=== PATIENT | female | born 1995 | race Caucasian/White ===

== ENCOUNTER 2019-10-30 16:41 | Emergency (ER) | payer SELFPAY ==
[2019-10-30] MEDS ORDERED: Sodium Chloride 0.9% 10 ML Syringe FLUSH PRN ×2 (18:55→19:36)
[2019-10-30] MEDS ORDERED: HYDROmorphone 1 MG/ML Syringe IVPUSH ONE (19:04)
--- NOTE | 2019-10-30 19:15 | EDM.PDOC ---
ED HPI GENERAL MEDICAL PROBLEM - General Chief Complaint: Upper Extremity Injury/Pain Stated Complaint: RIGHT ARM/SHOULDER PAIN Time Seen by Provider: 10/30/19 17:11 Source of Information: Reports: Patient History Limitations: Reports: No Limitations - History of Present Illness INITIAL COMMENTS - FREE TEXT/NARRATIVE: The patient presents with right shoulder and arm pain. The patient was just discharged from [facility]. She gave 36 hours ago. She delivered at 40 weeks gestation. She did have a shoulder dystocia. After delivery she had no problems and was feeling fine until about 40 minutes ago in the car she developed this right shoulder and arm pain. She said the pain started in the shoulder and now it is shooting down her arm. She has some tingling and numbness in that arm also. She has no neck pain. She did not injure her arm. She did have some tightness in her chest but she thought that was maybe from breast feeding. She has no swelling or pain in her legs. She has no shortness of breath. She has no fever, chills, cough, congestion or runny nose. She has no history of DVTs or PEs. Onset: Sudden Duration: Minutes: (40) Location: Reports: Upper Extremity, Right (right shoulder and right arm) Quality: Reports: Sharp Severity: Moderate Improves with: Reports: None Worsens with: Reports: None Associated Symptoms: Reports: No Other Symptoms Right Arm Pain Score (Numeric/FACES): 6 - Related Data Allergies Allergy/AdvReac Type Severity Reaction Status Date / Time No Known Allergies Allergy Verified 10/30/19 16:55 Home Meds: Home Meds [id number]/Iron Fumarate/FA/DSS [ 19 Tablet] 1 each PO DAILY 10/30/19 [ History] Past Medical History HEENT History: Reports: None Cardiovascular History: Reports: None Respiratory History: Reports: None Gastrointestinal History: Reports: Other (See Below) Other Gastrointestinal History: Crohn's Disease Genitourinary History: Reports: None 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 Social & Family History - Tobacco Use Smoking Status *Q: Never Smoker - Caffeine Use Caffeine Use: Reports: Coffee - Recreational Drug Use Recreational Drug Use: No Review of Systems - Review of Systems Review Of Systems: See Below Constitutional: Reports: No Symptoms Eyes: Reports: No Symptoms Ears: Reports: No Symptoms Nose: Reports: No Symptoms Mouth/Throat: Reports: No Symptoms Respiratory: Reports: No Symptoms Cardiovascular: Reports: No Symptoms GI/Abdominal: Reports: No Symptoms Musculoskeletal: Reports: Shoulder Pain (right that raiates down her arm) ED EXAM, GENERAL - Physical Exam Exam: See Below Exam Limited By: No Limitations General Appearance: Alert, No Apparent Distress Ears: Normal External Exam Nose: Normal Inspection Head: Atraumatic, Normocephalic Respiratory/Chest: No Respiratory Distress, Lungs Clear, Normal Breath Sounds Cardiovascular: Regular Rate, Rhythm, No Edema, No Murmur GI/Abdominal: Soft, Non-Tender, No Organomegaly, No Mass Extremities: Other (No pain upon palpation to the right shoulder. Good sensation and pulses distally.) Course - Vital Signs Last Recorded V/S: Last Vital Signs Temp 97.5 F 10/30/19 16:50 Pulse 69 10/30/19 19:19 Resp 18 10/30/19 19:19 BP 149/110 H 10/30/19 19:19 Pulse Ox 98 10/30/19 19:19 - Orders/Labs/Meds Orders: Active Orders 24 hr Category Date Time Status Cardiac Monitoring [RC] . DIRECTED Care 10/30/19 17:27 Active Peripheral IV Care [RC] . DIRECTED Care 10/30/19 18:56 Active Sodium Chloride 0.9% [Normal Saline] 100 ml Med 10/30/19 19:45 Active IV ASDIRECTED Sodium Chloride 0.9% [Saline Flush] Med 10/30/19 18:55 Active 10 ml FLUSH ASDIRECTED PRN Sodium Chloride 0.9% [Saline Flush] Med 10/30/19 19:36 Active 10 ml FLUSH ONETIME PRN Peripheral IV Insertion Adult [OM.PC] Routine Oth 10/30/19 18:55 Ordered Medication Orders Sodium Chloride (Normal Saline) 100 mls @ 80 mls/hr IV ASDIRECTED CANDIDO Last Admin: 10/30/19 19:49 Dose: 80 mls/hr Sodium Chloride (Saline Flush) 10 ml FLUSH ASDIRECTED PRN PRN Reason: Keep Vein Open Last Admin: 10/30/19 19:13 Dose: 10 ml Sodium Chloride (Saline Flush) 10 ml FLUSH ONETIME PRN PRN Reason: KEEP VEIN OPEN Last Admin: 10/30/19 19:48 Dose: 10 ml Labs: Laboratory Tests 10/30/19 10/30/19 10/30/19 Range/Units 17:50 17:50 17:50 WBC 9.82 (3.98-10.04) K/mm3 RBC 4.07 (3.98-5.22) M/mm3 Hgb 11.8 (11.2-15.7) gm/dl Hct 36.2 (34.1-44.9) % MCV 88.9 (79.4-94.8) fl MCH 29.0 (25.6-32.2) pg MCHC 32.6 (32.2-35.5) g/dl RDW Std Deviation 41.3 (36.4-46.3) fL Plt Count 225 (182-369) K/mm3 MPV 10.2 (9.4-12.3) fl Neut % (Auto) 72.6 H (34.0-71.1) % Lymph % (Auto) 19.8 (19.3-51.7) % [place] % (Auto) 6.0 (4.7-12.5) % Eos % (Auto) 1.3 (0.7-5.8) Baso % (Auto) 0.1 (0.1-1.2) % Neut # (Auto) 7.13 H (1.56-6.13) K/mm3 Lymph # (Auto) 1.94 (1.18-3.74) K/mm3 [place] # (Auto) 0.59 H (0.24-0.36) K/mm3 Eos # (Auto) 0.13 (0.04-0.36) K/mm3 Baso # (Auto) 0.01 (0.01-0.08) K/mm3 D-Dimer, Quantitative 1.69 H (0.19-0.50) mg/L Sodium 143 (136-145) mEq/L Potassium 3.7 (3.5-5.1) mEq/L Chloride 109 H (98-107) mEq/L Carbon Dioxide 23 (21-32) mEq/L Anion Gap 14.7 (5-15) BUN 11 (7-18) mg/dL Creatinine 0.7 (0.55-1.02) mg/dL Est Cr Clr Drug Dosing 132.85 mL/min Estimated GFR (MDRD) > 60 (>60) mL/min BUN/Creatinine Ratio 15.7 (14-18) Glucose 95 (74-106) mg/dL Calcium 8.7 (8.5-10.1) mg/dL Total Bilirubin 0.2 (0.2-1.0) mg/dL AST 38 H (15-37) U/L ALT 40 (14-59) U/L Alkaline Phosphatase 112 (46-116) U/L Troponin I < 0.017 (0.00-0.056) ng/mL Total Protein 6.0 L (6.4-8.2) g/dl Albumin 2.5 L (3.4-5.0) g/dl Globulin 3.5 gm/dL Albumin/Globulin Ratio 0.7 L (1-2) Meds: Medications Generic Name Dose Route Start Last Admin Trade Name Freq PRN Reason Stop Dose Admin Sodium Chloride 100 mls @ 80 mls/hr 10/30/19 19:45 10/30/19 19:49 Normal Saline IV 80 mls/hr ASDIRECTED CANDIDO Administration Sodium Chloride 10 ml 10/30/19 18:55 10/30/19 19:13 Saline Flush FLUSH 10 ml ASDIRECTED PRN Administration Keep Vein Open Sodium Chloride 10 ml 10/30/19 19:36 10/30/19 19:48 Saline Flush FLUSH 10 ml ONETIME PRN Administration KEEP VEIN OPEN Discontinued Medications Generic Name Dose Route Start Last Admin Trade Name Freq PRN Reason Stop Dose Admin Hydromorphone HCl 1 mg 10/30/19 19:04 10/30/19 19:13 Dilaudid IVPUSH 10/30/19 19:05 1 mg ONETIME ONE Administration Iopamidol 100 ml 10/30/19 19:36 10/30/19 19:48 Isovue-370 (76%) IVPUSH 10/30/19 19:37 100 ml ONETIME ONE Administration - Re-Assessments/Exams Free Text/Narrative Re-Assessment/Exam: 10/30/19 19:17 I ordered labs. Her CBC and CMP looks good. Her D-dimer was elevated at 1.69. Her AST was slightly elevated at 38. Her troponin is negative. I have ordered a CT angio of her chest to look for PE. She has more pain now so I ordered dilaudid 1mg IV. 10/30/19 20:[address] shows very minimal pleural effusions. No findings of pulmonary embolism. Nothing acute is seen on CT study of the chest. 10/30/19 20:[address] Monteiro to see if I was missing something. She did not think I was. She said she could see the patient early next week. Departure - Departure Time of Disposition: 20:30 Disposition: Home, Self-Care 01 Condition: Good Clinical Impression: Right arm pain, Tingling of right upper extremity - Discharge Information *PRESCRIPTION DRUG MONITORING PROGRAM REVIEWED*: Not Applicable *COPY OF PRESCRIPTION DRUG MONITORING REPORT IN PATIENT KARAN: Not Applicable Referrals: PCP,None [Primary Care Provider] - Nelly Monteiro MD [Physician] - 1 Week Forms: ED Department Discharge Additional Instructions: Ice your arm and shoulder for 15 minutes 3 times per day for 2 days. Take tylenol or motrin as needed for pain. Please return if you are worse. Sepsis Event Note - Evaluation Sepsis Screening Result: No Definite Risk - Focused Exam Vital Signs: Vital Signs Temp Pulse Resp BP Pulse Ox 10/30/19 19:19 69 18 149/110 H 98 10/30/19 16:50 97.5 F 94 16 144/94 H 97 Date Exam was Performed: 10/30/19 Time Exam was Performed: 20:29 - My Orders Last 24 Hours: My Active Orders 10/30/19 17:27 Cardiac Monitoring [RC] . DIRECTED 10/30/19 18:55 Sodium Chloride 0.9% [Saline Flush] 10 ml FLUSH ASDIRECTED PRN Peripheral IV Insertion Adult [OM.PC] Routine 10/30/19 18:56 Peripheral IV Care [RC] . DIRECTED 10/30/19 19:36 Sodium Chloride 0.9% [Saline Flush] 10 ml FLUSH ONETIME PRN 10/30/19 19:45 Sodium Chloride 0.9% [Normal Saline] 100 ml IV ASDIRECTED - Assessment/Plan Last 24 Hours: My Active Orders 10/30/19 17:27 Cardiac Monitoring [RC] . DIRECTED 10/30/19 18:55 Sodium Chloride 0.9% [Saline Flush] 10 ml FLUSH ASDIRECTED PRN Peripheral IV Insertion Adult [OM.PC] Routine 10/30/19 18:56 Peripheral IV Care [RC] . DIRECTED 10/30/19 19:36 Sodium Chloride 0.9% [Saline Flush] 10 ml FLUSH ONETIME PRN 10/30/19 19:45 Sodium Chloride 0.9% [Normal Saline] 100 ml IV ASDIRECTED
[2019-10-30] MEDS ORDERED: Iopamidol 755 Mg/ML 100 ML Bottle IVPUSH ONE (19:36)
[2019-10-30] MEDS ORDERED: Sodium Chloride 0.9% 100 ML IV SCH (19:45)
--- NOTE | 2019-10-30 20:14 | CT ---
CT chest Technique: Multiple axial sections through the chest were obtained. Intravenous contrast was utilized. Study performed pulmonary protocol. Comparison: No prior chest imaging is available. Findings: Visualized upper abdominal structures shows no discrete abnormality. No pericardial thickening is seen. Very minimal pleural effusions are seen bilaterally. Mediastinum and hilar regions show no adenopathy. No axillary adenopathy is seen. Aorta shows no aneurysm. Pulmonary arteries are fairly well-opacified. No filling defects are seen to indicate pulmonary embolism. Lung window settings were reviewed which shows no acute parenchymal change. Bone window settings were reviewed which shows no acute osseous finding. Impression: 1. Very minimal pleural effusions. 2. No findings of pulmonary embolism. Nothing acute is seen on CT study of the chest. Diagnostic code #2 Study was dictated in MDT
== END 2019-10-30 20:45 | disposition home or self-care (01) ==
LOC: JD.ED 16:41
DX: O90.89 Other complications of the puerperium, not elsewhere classified (principal); M79.601 Pain in right arm; R20.2 Paresthesia of skin
CPT/HCPCS: 36415; 71275; 80053; 84484; 85025; 85379; 96361; 96374; 99284; J1170; J7050; Q9967